=== PATIENT | male | born 1990 | race Caucasian/White ===

== ENCOUNTER 2018-01-18 16:59 | Emergency (ER) | payer SELFPAY ==
[~2018-01-18] VITALS: Ht 177.8 cm; Wt 89.5 kg
[2018-01-18 17:06] VITALS: BP 121/70; PULSE 92; RESP 16; TEMP 99.1; O2SAT 98
[2018-01-18 17:15] VITALS: BP 121/70; PULSE 92; RESP 16; TEMP 99.1; O2SAT 98
--- NOTE | 2018-01-18 18:06 | PD ---
HPI Chief Complaint: Cold / Flu Symptoms Time Seen by Provider: 18:00 Travel History International Travel<30 days: No Contact w/Intl Traveler<30days: No Traveled to known affect area: No History of Present Illness HPI Patient is a 27-year-old male who presents to the emergency room with complaints of flulike symptoms as well as sore throat. Patient reports that he has been having fevers, chills, myalgias which has been ongoing for the past 3- 4 days. Patient reports that he has also been having sore throat, reports that when he swallows, it hurts when he swallows. Patient is able to tolerate fluids as well as soft foods. Patient denies any sick contacts, reports that he recently traveled on a plane from another state to [place]. Patient with no chest pain or shortness of breath, patient with no abdominal pain, nausea vomiting. PFSH Past Medical History Medical History: Denies Significant Hx Diminished Hearing: No Tetanus Vaccination: Unknown Past Surgical History Surgical History: No Previous Surgery Social History Alcohol Use: Yes (SOC) Tobacco Use: No Substance Use: No Allergies-Medications (Allergen,Severity, Reaction): Coded Allergies: No Known Allergies (Unverified , 01/18/18) Reported Meds & Prescriptions Reported Meds & Active Scripts Active No Active Prescriptions or Reported Medications Review of Systems General / Constitutional: Positive: Fever, Chills Eyes: No: Visual changes HENT: Positive: Sore Throat, Rhinorrhea, Congestion, No: Headaches, Rhinitis, Neck Pain Cardiovascular: No: Chest Pain or Discomfort Respiratory: No: Cough, Shortness of Breath Gastrointestinal: No: Abdominal Pain Genitourinary: No: Dysuria Musculoskeletal: No: Pain Skin: No Rash Neurologic: No: Weakness Psychiatric: No: Depression Endocrine: No: Polydipsia Hematologic/Lymphatic: No: Easy Bruising Physical Exam Narrative GENERAL: Well-nourished, well-developed patient. SKIN: Focused skin assessment warm/dry. HEAD: Normocephalic. EYES: No scleral icterus. No injection or drainage. ENT: Posterior pharynx open and patent with no airway compromise, patient does have bilateral pustules to bilateral tonsils NECK: Supple, trachea midline. No JVD or lymphadenopathy. CARDIOVASCULAR: Regular rate and rhythm without murmurs, gallops, or rubs. RESPIRATORY: Breath sounds equal bilaterally. No accessory muscle use. GASTROINTESTINAL: Abdomen soft, non-tender, nondistended. MUSCULOSKELETAL: No cyanosis, or edema. BACK: Nontender without obvious deformity. No CVA tenderness. Data Data Last Documented VS Vital Signs Date Time Temp Pulse Resp B/P (MAP) Pulse Ox O2 Delivery O2 Flow Rate FiO2 01/18/18 17:15 99.1 92 16 121/70 (87) 98 18 17:06 Room Air Orders Orders Group A Rapid Strep Screen (01/18/18 17:57) Influenzae A/B Antigen (01/18/18 17:57) Dexamethasone Inj (Decadron Inj) (01/18/18 18:15) Ketorolac Inj (Toradol Inj) (01/18/18 18:15) Amoxicil-Clavulanate (Augmentin) (01/18/18 18:15) MDM Medical Decision Making Medical Screen Exam Complete: Yes Emergency Medical Condition: Yes Medical Record Reviewed: Yes Interpretation(s) Vital Signs Date Time Temp Pulse Resp B/P (MAP) Pulse Ox O2 Delivery O2 Flow Rate FiO2 01/18/18 17:15 99.1 92 16 121/70 (87) 98 18 17:06 99.1 92 16 121/70 (87) 98 Room Air Differential Diagnosis Sinusitis, strep pharyngitis, influenza, pneumonia, viral syndrome Narrative Course Patient is a 27-year-old male who presents the emergency room complaints of body aches, myalgias, fever and chills and sore throat for the past 3-4 days. Patient is afebrile while in the emergency room, he denies take any antipyretics at home. Patient does have physical exam significant for pustules to posterior tonsils concerning for strep pharyngitis. Strep cultures were sent as well as influenza swab. IM dexamethasone as well as IM Toradol ordered Microbiology Date/Time Source Procedure Growth Status 01/18/18 18:22 Nasal Aspirate Influenza Types A,B Antigen (DANIE) - Final NEGATIVE FOR FLU A AND B ANTIGEN.... Complete 01/18/18 18:22 Throat Group A Streptococcus Screen (DANIE) - Final Pos For Grp A Strep Antigen Complete Patient positive for group A strep. Patient will be started on Augmentin. Patient will follow-up with his primary care doctor and will return to the emergency room as needed. Diagnosis Primary Impression: Pharyngitis, acute Qualified Codes: J02.0 - Streptococcal pharyngitis Patient Instructions: General Instructions Additional Instructions: Please provide patient with a copy of their lab work and studies at discharge* * Please follow up with your primary care doctor in 2-3 days Return to the ER if symptoms worsen or progress Return to the ER as needed Please take Tylenol or Motrin for pain Please complete full course of antibiotics Please drink plenty of fluids Med/Other Pt SpecificInfo: Prescription(s) given Scripts Amoxicillin-Clavulanate (Augmentin) 875-125 Mg Tab 1 TAB PO BID for Infection for 10 Days, #20 TAB 0 Refills Prov: Kita Chau DO 01/18/18 Disposition: 01 DISCHARGE HOME Condition: Stable Kita Chau DO Jan 18, 2018 18:06
[2018-01-18] MEDS ORDERED: KETOROLAC TROMETHAMINE 60 MG/2 ML (IM) VIAL IM ONE (18:15)
[2018-01-18] MEDS ORDERED: DEXAMETHASONE SOD PHOS 20 MG/5 ML VIAL IM ONE (18:15)
[2018-01-18] MEDS ORDERED: AMOXICILLIN/CLAVULANATE K 875 MG TAB PO ONE (18:15)
[2018-01-18] MEDS ORDERED: AUGM875T3 PO (18:53)
== END 2018-01-18 19:29 | disposition home or self-care (01) ==
LOC: PHEFT 16:59
DX: J02.0 Streptococcal pharyngitis (principal)
CPT/HCPCS: 87804; 87880; 96372; 99283; J1100; J1885